=== PATIENT | male | born 1965 | race Hispanic/Latino ===

== ENCOUNTER 2021-01-02 13:03 | Inpatient (IN) | payer MEDICARE, OTHER ==
[~2021-01-02] VITALS: Ht 170.2 cm; Wt 83.9 kg
[2021-01-02] MEDS: INSULIN HUMULIN R 100 UNIT/ML 3ML SQ SCH (01:30)
[~2021-01-02 13:03] MED LIST: AEC81 PO; FENO134C PO; GLIP1TAB5 PO; INVOK100TB PO; LEVO500T2 PO; LISI10TA24 PO; METO-408 PO; NORT25CA3 PO; PIOG15TA66 PO; PRAV80TA21 PO; TYL3 PO
[2021-01-02 14:08] LABS: BASOPHILS % (AUTO) 0.1 % (0.0-5.0); EOSINOPHILS % (AUTO) 0.3 % (0.0-8.0); HEMATOCRIT 42.1 % (42-54); LYMPHOCYTES % (AUTO) 8.1 % (21.0-51.0); MEAN CORPUSCULAR HEMOGLOBIN 31.8 pg (27.0-33.0); MEAN CORPUSCULAR HGB CONC 35.6 g/dL (32.0-36.0); MEAN CORPUSCULAR VOLUME 89.4 fL (79-99); MONOCYTES % (AUTO) 7.4 % (3.0-13.0); NEUTROPHILS % (AUTO) 77.3 % (40.0-77.0); PLATELET COUNT (AUTO) 222 K/uL (130-400); RED BLOOD CELL COUNT(AUTO) 4.71 MIL/uL (4.50-6.20); RED CELL DISTRIBUTION WIDTH 11.7 % (11.0-15.5)
[2021-01-02 14:14] LABS: APPEARANCE,URINE Clear (CLEAR); BILIRUBIN,URINE Negative (NEGATIVE); COLOR,URINE Yellow (YELLOW); GLUCOSE, URINE (UA) >=1000 mg/dL (NEGATIVE); KETONES,URINE Negative (NEGATIVE); LEUKOCYTE ESTERASE ,URINE Negative (NEGATIVE); NITRATE,URINE Negative (NEGATIVE); OCCULT BLOOD,URINE Negative (NEGATIVE); PH,URINE 5.5 (5.0-8.0); PROTEIN,URINE Negative (NEGATIVE)
[2021-01-02 14:16] LABS: CREATININE 1.2 mg/dL (0.5-1.5); INR 0.99 (0.85-1.15); POTASSIUM 4.5 mmol/L (3.5-5.1); PROTHROMBIN TIME 10.8 SEC (9.6-11.6)
[2021-01-02] MEDS ORDERED: IPRATROPIUM/ALBUTEROL SULFATE 3 ML SOLUTION IH ONE (14:17)
[2021-01-02 14:20] LABS: ALBUMIN 3.3 g/dL (3.5-5.0); BILIRUBIN,TOTAL 0.9 mg/dL (0.2-1.0); TOTAL PROTEIN, SERUM 7.7 g/dL (6.0-8.3)
[2021-01-02] MEDS ORDERED: DEXAMETHASONE SOD PHOSPHATE 10MG/ML 1ML VIAL ONE (14:26)
[2021-01-02] MEDS ORDERED: AZITHROMYCIN 500MG+NS 250ML 250 ML IV ONE (14:27)
[2021-01-02] MEDS ORDERED: LEVOFLOXACIN 500 MG/D5W 100 ML 100 ML ONE (14:27)
[2021-01-02] MEDS ORDERED: ACETAMINOPHEN 325 MG TAB ONE (14:27)
[2021-01-02] MEDS ORDERED: 0.9%NACL 1000ML 1,000 ML IV ONE ×2 (14:28→17:39)
[2021-01-02 14:32] LABS: ABG BASE EXCESS -1.9 mmol/L (-2.0-3.0); ABG HCO3 21.8 mmol/L (21.0-28.0); ABG OXYGEN SATURATION 82.3 % (95.0-99.0); ABG PCO2 34 mmHg (35-48)
[2021-01-02 14:46] LABS: B-TYPE NATRIURETIC PEPTIDE 28 pg/mL (0-100)
[2021-01-02 14:48] LABS: BACTERIA,URINE None Seen /HPF (None Seen); RBC,URINE None Seen /HPF (0-1); SQUAMOUS EPITHELIAL CELL,UR 0-2 /HPF (0-2); WBC,URINE 0-1 /HPF (0-1)
[2021-01-02 15:08] LABS: BAND NEUTROPHILS % (MANUAL) 3 % (0-2); BASOPHILS % (MANUAL) 1 % (0-2); LYMPHOCYTES % (MANUAL) 10 % (22-44); MAN.DIFF COMMENT-IMPRESSION MANUAL DIFFERENTIAL; METAMYELOCYTES % 2 % (0-0); MONOCYTES % (MANUAL) 10 % (2-9); REACTIVE LYMPHOCYTES 1 % (0-0); SEGMENTED NEUTROPHILS % 73 % (40-70)
[2021-01-02] MEDS ORDERED: KCL 20 MEQ ERTAB PO PRN (15:15)
[2021-01-02] MEDS ORDERED: ONDANSETRON 4MG INJ IVP PRN (15:15)
[2021-01-02] MEDS ORDERED: POTASSIUM CHLORIDE 20MEQ/100ML 100 ML IV PRN ×2 (15:15)
[2021-01-02] MEDS ORDERED: MAGNESIUM 2GM PREMIX 50ML 50 ML IV PRN (15:15)
[2021-01-02] MEDS ORDERED: DEXTROSE 50%-WATER 50 ML DISP.SYRIN IV PRN (15:15)
[2021-01-02] MEDS ORDERED: LIDOCAINE HCL-MPF 1% 2ML VIAL IV PRN ×2 (15:15)
[2021-01-02] MEDS ORDERED: POTASSIUM CHLORIDE 10% ELIXIR 20 MEQ/15 ML UDCUP PO PRN (15:15)
[2021-01-02] MEDS ORDERED: GUAIFENESIN SUGAR-FREE 100 MG/5 ML UDCUP PO PRN (15:15)
[2021-01-02] MEDS ORDERED: GLUCAGON 1MG KIT 1 MG ML IM PRN (15:15)
[2021-01-02] MEDS: ENOXAPARIN SODIUM 40 MG/0.4 ML SYRINGE SQ SCH (15:15)
[2021-01-02] MEDS: PANTOPRAZOLE 40 MG TAB DR PO SCH (15:15)
[2021-01-02] MEDS ORDERED: ALBUTEROL INHALER 90MCG/INH IH ONE (17:37)
[2021-01-02] MEDS ORDERED: ENOXAPARIN SODIUM 40 MG/0.4 ML SYRINGE SQ ONE (17:37)
[2021-01-02] MEDS ORDERED: PANTOPRAZOLE 40 MG/VIAL ONE (17:38)
[2021-01-02] MEDS ORDERED: INSULIN HUMULIN R 100 UNIT/ML 3ML ONE (18:04)
[2021-01-02] MEDS: SOLU-MEDROL 125MG VIAL IVP SCH (21:00)
[2021-01-03] VITALS (7 sets, daily range): BP systolic 119–149; BP diastolic 64–78
[2021-01-03] MEDS: ALBUTEROL INHALER 90MCG/INH IH SCH ×3 (01:58→20:28)
[2021-01-03] MEDS ORDERED: METF-446 PO (03:53)
[2021-01-03] MEDS ORDERED: ATOR40TA71 PO (03:55)
[2021-01-03] MEDS ORDERED: DEXA2TAB PO (03:57)
[2021-01-03] MEDS ORDERED: GLIP10TA9 PO (04:11)
[2021-01-03] MEDS ORDERED: CANA300T PO (04:12)
[2021-01-03 04:23] LABS: ABG BASE EXCESS -1.6 mmol/L (-2.0-3.0); ABG HCO3 22.2 mmol/L (21.0-28.0); ABG OXYGEN SATURATION 92.2 % (95.0-99.0); ABG PCO2 35 mmHg (35-48)
[2021-01-03 04:24] LABS: HEMATOCRIT 37.8 % (42-54); MEAN CORPUSCULAR HEMOGLOBIN 30.8 pg (27.0-33.0); MEAN CORPUSCULAR HGB CONC 34.7 g/dL (32.0-36.0); MEAN CORPUSCULAR VOLUME 88.9 fL (79-99); RED BLOOD CELL COUNT(AUTO) 4.25 MIL/uL (4.50-6.20); RED CELL DISTRIBUTION WIDTH 11.7 % (11.0-15.5); WHITE BLOOD COUNT (AUTO) 13.3 K/uL (4.8-10.8)
[2021-01-03 04:45] LABS: ALBUMIN 2.7 g/dL (3.5-5.0); BILIRUBIN,TOTAL 0.6 mg/dL (0.2-1.0); CREATININE 0.9 mg/dL (0.5-1.5); MAGNESIUM 2.3 mg/dL (1.80-2.40); POTASSIUM 4.1 mmol/L (3.5-5.1); TOTAL PROTEIN, SERUM 6.7 g/dL (6.0-8.3)
[2021-01-03] MEDS: INSULIN HUMULIN R 100 UNIT/ML 3ML SQ SCH ×4 (05:43→20:29)
[2021-01-03] MEDS: ACETAMINOPHEN 325 MG TAB PO PRN ×2 (05:48→14:19)
[2021-01-03] MEDS: SOLU-MEDROL 125MG VIAL IVP SCH ×2 (10:08→20:28)
[2021-01-03] MEDS: PANTOPRAZOLE 40 MG TAB DR PO SCH (10:08)
[2021-01-03] MEDS: ENOXAPARIN SODIUM 40 MG/0.4 ML SYRINGE SQ SCH (10:09)
[2021-01-04] MEDS: ALBUTEROL INHALER 90MCG/INH IH SCH ×6 (01:55→21:07)
[2021-01-04 03:00] VITALS: BP 117/67
[2021-01-04 04:57] LABS: HEMATOCRIT 37.5 % (42-54); MEAN CORPUSCULAR HEMOGLOBIN 31.9 pg (27.0-33.0); MEAN CORPUSCULAR HGB CONC 36.3 g/dL (32.0-36.0); MEAN CORPUSCULAR VOLUME 87.8 fL (79-99); RED BLOOD CELL COUNT(AUTO) 4.27 MIL/uL (4.50-6.20); RED CELL DISTRIBUTION WIDTH 11.5 % (11.0-15.5); WHITE BLOOD COUNT (AUTO) 16.8 K/uL (4.8-10.8)
[2021-01-04 05:08] LABS: CREATININE 0.8 mg/dL (0.5-1.5); CRP QUANTITATIVE 32.2 mg/L (0.00-9.0); POTASSIUM 3.8 mmol/L (3.5-5.1)
[2021-01-04] MEDS: INSULIN HUMULIN R 100 UNIT/ML 3ML SQ SCH ×4 (05:44→21:04)
[2021-01-04 07:00] VITALS: BP 132/86
[2021-01-04] MEDS: PANTOPRAZOLE 40 MG TAB DR PO SCH (08:30)
[2021-01-04] MEDS: ENOXAPARIN SODIUM 40 MG/0.4 ML SYRINGE SQ SCH (08:31)
[2021-01-04 11:00] VITALS: BP 120/67
[2021-01-04] MEDS: SOLU-MEDROL 125MG VIAL IVP SCH ×2 (12:10→20:55)
[2021-01-04 16:00] VITALS: BP 130/77
[2021-01-04 19:34] VITALS: BP 122/68
[2021-01-04] MEDS: ACETAMINOPHEN 325 MG TAB PO PRN (20:55)
[2021-01-04 23:33] VITALS: BP 108/64
[2021-01-05] MEDS: ALBUTEROL INHALER 90MCG/INH IH SCH ×6 (01:57→20:33)
[2021-01-05 03:04] VITALS: BP 123/59
[2021-01-05] MEDS: SOLU-MEDROL 125MG VIAL IVP SCH (04:53)
[2021-01-05] MEDS: ACETAMINOPHEN 325 MG TAB PO PRN (04:53)
[2021-01-05] MEDS ORDERED: TRAMADOL HCL 50 MG TABLET PO ONE (05:45)
[2021-01-05] MEDS ORDERED: TRAMADOL HCL 50 MG TABLET ONE (05:52)
[2021-01-05] MEDS: INSULIN HUMULIN R 100 UNIT/ML 3ML SQ SCH ×4 (06:37→20:32)
[2021-01-05 07:00] VITALS: BP 108/44
[2021-01-05] MEDS: PANTOPRAZOLE 40 MG TAB DR PO SCH (08:06)
[2021-01-05] MEDS: GABAPENTIN 300 MG CAPSULE PO SCH ×3 (08:07→20:31)
[2021-01-05] MEDS: ASPIRIN 81 MG EC TAB PO SCH (08:07)
[2021-01-05] MEDS: ATORVASTATIN 40 MG TABLET PO SCH (08:07)
[2021-01-05] MEDS: METOPROLOL SUCCINATE 50 MG TAB.SR.24H PO SCH (08:08)
[2021-01-05] MEDS: ENOXAPARIN SODIUM 40 MG/0.4 ML SYRINGE SQ SCH (08:09)
[2021-01-05] MEDS: MORPHINE 2 MG SYG IVP PRN ×2 (10:24→20:39)
[2021-01-05] MEDS: LISINOPRIL 10 MG TABLET PO SCH (10:24)
[2021-01-05 11:00] VITALS: BP 139/75
[2021-01-05] MEDS: FENOFIBRATE 134 MG PO SCH (11:49)
[2021-01-05 16:00] VITALS: BP 108/65
[2021-01-05 19:13] VITALS: BP 114/67
[2021-01-05 23:16] VITALS: BP 105/60
[2021-01-06] MEDS: ALBUTEROL INHALER 90MCG/INH IH SCH ×5 (02:00→17:32)
[2021-01-06 03:45] VITALS: BP 92/55
[2021-01-06] MEDS: INSULIN HUMULIN R 100 UNIT/ML 3ML SQ SCH ×3 (06:08→16:27)
[2021-01-06 07:35] VITALS: BP 96/56
[2021-01-06] MEDS: ASPIRIN 81 MG EC TAB PO SCH (08:15)
[2021-01-06] MEDS: GABAPENTIN 300 MG CAPSULE PO SCH ×2 (08:16→14:42)
[2021-01-06] MEDS: PANTOPRAZOLE 40 MG TAB DR PO SCH (08:16)
[2021-01-06] MEDS: ATORVASTATIN 40 MG TABLET PO SCH (08:17)
[2021-01-06] MEDS: ACETAMINOPHEN 325 MG TAB PO PRN (08:17)
[2021-01-06] MEDS: ENOXAPARIN SODIUM 40 MG/0.4 ML SYRINGE SQ SCH (08:18)
[2021-01-06] MEDS ORDERED: ASPI-1012 PO (08:48)
[2021-01-06] MEDS ORDERED: DEXA6TAB7 PO (08:48)
[2021-01-06] MEDS ORDERED: FAMO10TA39 PO (08:59)
[2021-01-06] MEDS ORDERED: PREDNISONE 20 MG TABLET PO SCH (09:00)
[2021-01-06] MEDS: METOPROLOL SUCCINATE 50 MG TAB.SR.24H PO SCH (09:00)
[2021-01-06] MEDS: LISINOPRIL 10 MG TABLET PO SCH (09:00)
[2021-01-06] MEDS: FENOFIBRATE 134 MG PO SCH (09:00)
[2021-01-06] MEDS ORDERED: KETOROLAC 30MG VIAL (30MG/ML) IV SCH (09:00)
[2021-01-06 12:00] VITALS: BP 109/63
[2021-01-06 16:00] VITALS: BP 108/61
== END 2021-01-06 19:25 | disposition home or self-care (01) | DRG 177 ==
LOC: EDH 13:03 → EDHIP 15:08 → 2AH 21:37
PROVIDERS: ADMIT Internal Medicine; ATTEND Internal Medicine
DX: U07.1 COVID-19 (principal); J96.01 Acute respiratory failure with hypoxia; J12.9 Viral pneumonia, unspecified; E87.1 Hypo-osmolality and hyponatremia; E78.00 Pure hypercholesterolemia, unspecified; G89.29 Other chronic pain; I10 Essential (primary) hypertension; E11.65 Type 2 diabetes mellitus with hyperglycemia; Z68.29 Body mass index [BMI] 29.0-29.9, adult; E66.9 Obesity, unspecified; Z79.82 Long term (current) use of aspirin; Z79.84 Long term (current) use of oral hypoglycemic drugs; Z87.891 Personal history of nicotine dependence; Z79.899 Other long term (current) drug therapy
CPT/HCPCS: 36415; 36600; 71045; 80048; 80053; 81001; 82550; 82803; 82948; 83605; 83615; 83735; 83880; 84145; 84484; 85025; 85027; 85378; 85610; 85730; 86140; 87040; 87426; 93005; 94640; 94760; 99291; C9113; G0378; J0456; J1100; J1650; J1815; J1885; J1956; J2930; J7030

== ENCOUNTER 2021-01-24 12:43 | Emergency (ER) | payer OTHER ==
[~2021-01-24 12:43] MED LIST changes: +ASPI-1012 PO; +ATOR40TA71 PO; +CANA300T PO; +DEXA2TAB PO; +DEXA6TAB7 PO; +FAMO10TA39 PO; +GLIP10TA9 PO; +METF-446 PO
[2021-01-24 13:05] LABS: BASOPHILS % (AUTO) 0.5 % (0.0-5.0); EOSINOPHILS % (AUTO) 4.4 % (0.0-8.0); HEMATOCRIT 37.6 % (42-54); MEAN CORPUSCULAR HEMOGLOBIN 31.6 pg (27.0-33.0); MEAN CORPUSCULAR HGB CONC 33.8 g/dL (32.0-36.0); MEAN CORPUSCULAR VOLUME 93.5 fL (79-99); MONOCYTES % (AUTO) 9.4 % (3.0-13.0); NEUTROPHILS % (AUTO) 62.2 % (40.0-77.0); PLATELET COUNT (AUTO) 143 K/uL (130-400); RED BLOOD CELL COUNT(AUTO) 4.02 MIL/uL (4.50-6.20); RED CELL DISTRIBUTION WIDTH 12.6 % (11.0-15.5); WHITE BLOOD COUNT (AUTO) 6.3 K/uL (4.8-10.8)
[2021-01-24 13:14] LABS: POTASSIUM 4.1 mmol/L (3.5-5.1)
[2021-01-24 13:15] LABS: INR 0.99 (0.85-1.15); PROTHROMBIN TIME 10.8 SEC (9.6-11.6)
[2021-01-24 13:16] LABS: PARTIAL THROMBOPLASTIN TIME 26.7 SEC (26.3-35.5)
[2021-01-24 13:19] LABS: ALBUMIN 3.5 g/dL (3.5-5.0); BILIRUBIN,TOTAL 0.7 mg/dL (0.2-1.0); TOTAL PROTEIN, SERUM 7.2 g/dL (6.0-8.3)
[2021-01-24] MEDS ORDERED: HYDROCODONE/ACETAMINOPHEN 10/325 MG TAB ONE (13:19)
== END 2021-01-24 14:33 | disposition home or self-care (01) ==
LOC: EDH 12:43
DX: R04.0 Epistaxis (principal); E11.9 Type 2 diabetes mellitus without complications; E78.00 Pure hypercholesterolemia, unspecified; I10 Essential (primary) hypertension; Z87.891 Personal history of nicotine dependence; Z88.1 Allergy status to other antibiotic agents
CPT/HCPCS: 30901; 36415; 80053; 85025; 85610; 85730

== ENCOUNTER 2021-01-25 11:48 | Emergency (ER) | payer OTHER ==
[2021-01-25] MEDS ORDERED: ACETAMINOPHEN EXTRA STRENGTH 500 MG TABLET ONE (12:05)
== END 2021-01-25 12:40 | disposition home or self-care (01) ==
LOC: EDH 11:48
DX: R04.0 Epistaxis (principal); E11.9 Type 2 diabetes mellitus without complications; I10 Essential (primary) hypertension; E78.00 Pure hypercholesterolemia, unspecified; Z87.891 Personal history of nicotine dependence; Z88.1 Allergy status to other antibiotic agents; Z86.16 Personal history of COVID-19
CPT/HCPCS: 99282

== ENCOUNTER → 2024-11-17 | Outpatient (CLI) | payer OTHER ==
[~2024-11-17] MED LIST changes: -FENO134C PO; +FENO134C21 PO; +GLIP10TA16 PO; -GLIP10TA9 PO
--- NOTE | 2024-11-17 11:19 | NUR ---
RAD NUCLEAR MEDICINE PER DOCTOR Alex BRITT TREADMILL ECG PORTION SHOWED ABNORMALITIES, SHE WILL NOTIFY DR. MONCADA TO SUGGEST A DIFFERENT STUDY.
== END | disposition home or self-care (01) ==
LOC: RAH 08:47
PROVIDERS: ATTEND Internal Medicine Cardiovascular Disease
DX: R07.9 Chest pain, unspecified (principal); I25.10 Atherosclerotic heart disease of native coronary artery without angina pectoris
CPT/HCPCS: 78452; 93017; A9500 ×2